=== PATIENT | female | born 1950 ===

== ENCOUNTER 2021-07-31 05:22 | Day surgery (SDC) | payer BC ==
[2021-07-31] MEDS ORDERED: Midazolam 1 MG/ML 2 ML SDV IV ONE ×4 (05:23→06:39)
[2021-07-31] MEDS ORDERED: fentaNYL 100 MCG/2 ML SDV IV ONE ×3 (05:23→06:31)
[2021-07-31] MEDS ORDERED: Dextrose 5%-0.45% NaCl 1,000 ML IV SCH (05:45)
[2021-07-31] MEDS ORDERED: fentaNYL 100 MCG/2 ML SDV ONE (06:14)
[2021-07-31] MEDS ORDERED: Midazolam 1 MG/ML 2 ML SDV ONE (06:14)
[2021-07-31 09:14] VITALS: BP 99/45; PULSE 92
== END 2021-07-31 09:05 | disposition home or self-care (01) ==
LOC: DL.ENDO 05:22
PROVIDERS: ATTEND Internal Medicine Gastroenterology
DX: K52.9 Noninfective gastroenteritis and colitis, unspecified (principal); K63.89 Other specified diseases of intestine; D64.9 Anemia, unspecified; F17.210 Nicotine dependence, cigarettes, uncomplicated; R63.4 Abnormal weight loss
CPT/HCPCS: 45331; J2250; J3010; J7042

== ENCOUNTER 2021-09-15 06:51 | Day surgery (SDC) | payer BC ==
[~2021-09-15 06:51] MED LIST: Dextrose 5%-0.45% NaCl 1,000 ML IV SCH; Midazolam 1 MG/ML 2 ML SDV ONE; fentaNYL 100 MCG/2 ML SDV ONE
[2021-09-15] MEDS ORDERED: Midazolam 1 MG/ML 2 ML SDV IV ONE ×2 (06:52→07:55)
[2021-09-15] MEDS ORDERED: fentaNYL 100 MCG/2 ML SDV IV ONE ×3 (06:52→07:57)
[2021-09-15] MEDS ORDERED: Sodium Chloride 0.9% 1,000 ML IV SCH (08:00)
[2021-09-15 10:11] VITALS: BP 92/42; PULSE 94
== END 2021-09-15 10:15 | disposition home or self-care (01) ==
LOC: DL.ENDO 06:51
PROVIDERS: ATTEND Internal Medicine Gastroenterology
DX: B37.81 Candidal esophagitis (principal); K31.89 Other diseases of stomach and duodenum; K22.10 Ulcer of esophagus without bleeding
CPT/HCPCS: 87077; 87102; 87205; J2250; J3010; J7030

== ENCOUNTER 2021-11-21 11:47 | Emergency (ER) | payer BC ==
[2021-11-21 11:54] VITALS: BP 97/57; PULSE 86
[2021-11-21 12:29] LABS: ANION GAP 11.7 mEq/L (7-13)
[2021-11-21] MEDS ORDERED: Potassium Chloride 10 MEQ Tab.ER PO ONE (12:39)
== END 2021-11-21 13:38 | disposition home or self-care (01) ==
LOC: DL.ED 11:47
DX: U07.1 COVID-19 (principal); E87.6 Hypokalemia; Z87.891 Personal history of nicotine dependence; Z90.49 Acquired absence of other specified parts of digestive tract; Z79.899 Other long term (current) drug therapy
CPT/HCPCS: 36415; 80053; 85025; 87635; 99284; A9270; U0002

== ENCOUNTER 2022-03-05 06:48 | Day surgery (SDC) | payer BC ==
[~2022-03-05 06:48] MED LIST changes: +Sodium Chloride 0.9% 10 ML Syringe FLUSH PRN
[2022-03-05] MEDS ORDERED: Midazolam 1 MG/ML 2 ML SDV IV ONE ×5 (06:49→08:22)
[2022-03-05] MEDS ORDERED: fentaNYL 100 MCG/2 ML SDV IV ONE ×3 (06:49→08:13)
[2022-03-05] MEDS ORDERED: Sodium Chloride 0.9% 10 ML Syringe FLUSH SCH (09:00)
[2022-03-05 10:34] VITALS: BP 88/62; PULSE 92
== END 2022-03-05 10:30 | disposition home or self-care (01) ==
LOC: DL.ENDO 06:48
PROVIDERS: ATTEND Internal Medicine Gastroenterology
DX: K52.9 Noninfective gastroenteritis and colitis, unspecified (principal); K57.30 Diverticulosis of large intestine without perforation or abscess without bleeding; K64.4 Residual hemorrhoidal skin tags; K64.8 Other hemorrhoids; D64.9 Anemia, unspecified; E88.09 Other disorders of plasma-protein metabolism, not elsewhere classified
CPT/HCPCS: 45380; J2250; J3010; J7042

== ENCOUNTER 2022-06-11 16:49 | Emergency (ER) | payer BC, MEDICARE ==
[2022-06-11 16:44] VITALS: BP 96/59; PULSE 103
[~2022-06-11 16:49] MED LIST changes: -Dextrose 5%-0.45% NaCl 1,000 ML IV SCH; -Midazolam 1 MG/ML 2 ML SDV ONE; -fentaNYL 100 MCG/2 ML SDV ONE
[2022-06-11 17:41] LABS: ANION GAP 10.5 mEq/L (7-13)
[2022-06-11] MEDS ORDERED: Sodium Chloride 0.9% 1,000 ML IV ONE (17:49)
[2022-06-11] MEDS ORDERED: Iopamidol 612 MG/ML 100 ML Bottle IVPUSH ONE (17:50)
[2022-06-11 18:30] LABS: CORONAVIRUS COVID-19 NAA NEGATIVE (NEGATIVE); RESPIRATORY SYNCYTIAL VIR NAA NEGATIVE (NEGATIVE)
[2022-06-11] MEDS ORDERED: Ciprofloxacin in D5W 400 MG in Premix Bag 1 BAG IV ONE ×2 (18:46)
[2022-06-11] MEDS ORDERED: metroNIDAZOLE/Normal Saline 500 MG in Premix Bag 100 BAG IV ONE (18:47)
[2022-06-11] MEDS ORDERED: methylPREDNISolone Sodium Succinate 40 MG/1 ML SDV IVPUSH ONE (19:40)
[2022-06-11] MEDS ORDERED: HYDROmorphone 1 MG/ML Syringe IVPUSH ONE (20:14)
== END 2022-06-11 20:38 ==
LOC: DL.ED 16:49
DX: K50.119 Crohn's disease of large intestine with unspecified complications (principal); E87.1 Hypo-osmolality and hyponatremia; E87.8 Other disorders of electrolyte and fluid balance, not elsewhere classified; R62.7 Adult failure to thrive; D72.829 Elevated white blood cell count, unspecified; Z79.899 Other long term (current) drug therapy; Z86.16 Personal history of COVID-19; Z90.49 Acquired absence of other specified parts of digestive tract; Z20.822 Contact with and (suspected) exposure to COVID-19
CPT/HCPCS: 0241U; 36415; 71045; 74177; 80053; 81001; 82150; 83605; 83690; 83735; 83880; 84145; 85025; 86140; 87040; 87086; 93005; 93010; 96365; 96367; 96375; 99285; 99285-25; C1758; J0744; J1170; J2920; J3490; J7030; Q9967